=== PATIENT | female | born 2005 ===

== ENCOUNTER 2024-11-12 11:50 | Emergency (ER) | payer OTHER ==
[~2024-11-12] VITALS: Ht 165.1 cm; Wt 170.1 kg
[2024-11-12 13:09] LABS: BASOPHILS ABSOLUTE AUTO 0.04 K/mm3 (0.00-0.23); BASOPHILS PERCENT AUTO 1 % (0-2); EOSINOPHILS ABSOLUTE AUTO 0.26 K/mm3 (0.00-0.68); EOSINOPHILS PERCENT AUTO 4 % (0-6); Hemoglobin 13.7 g/dL (11.5-16.0); IMMATURE GRAN ABSOLUTE AUTO 0.02 K/mm3 (0.00-0.10); IMMATURE GRAN PERCENT AUTO 0 % (0-1); LYMPHOCYTES ABSOLUTE AUTO 2.08 K/mm3 (0.84-5.20); LYMPHOCYTES PERCENT AUTO 31 % (21-46); MONOCYTES ABSOLUTE AUTO 0.53 K/mm3 (0.16-1.47); MONOCYTES PERCENT AUTO 8 % (4-13); Mean Corpuscular HGB Conc 32.6 g/dL (31.5-36.5); Mean Corpuscular Volume 86 fL (80-100); Mean Platelet Volume 12.6 fL (9.1-12.4); NEUTROPHILS ABSOLUTE AUTO 3.85 K/mm3 (1.96-9.15); NEUTROPHILS PERCENT AUTO 57 % (41-73); Platelet Count 311 K/mm3 (150-400); RDW Coefficient Variation 13.5 % (11.7-14.2); RDW Standard Deviation 41.9 fL (35.1-46.3); White Blood Cell Count 6.78 K/mm3 (4.00-11.30)
[2024-11-12 13:25] LABS: Albumin, Blood 3.6 g/dL (3.4-5.0); Bilirubin, Total 0.4 mg/dL (0.1-1.0); Bun/Creatinine Ratio 14.9 (12.0-20.0); Creatinine, Blood 0.74 mg/dL (0.40-1.00); Globulin, Blood 3.6 g/dL (2.2-4.0); Potassium, Blood 3.7 mmol/L (3.5-5.5); Total Protein, Blood 7.2 g/dL (6.4-8.2)
[2024-11-12 13:57] LABS: Source, Urine Clean Catch
[2024-11-12 14:13] LABS: Appearance, Urine Hazy (Clear); Bilirubin, Urine Neg (Neg); Blood, Urine 2+ (Neg); Glucose Qualitative, Urine Neg (Neg); Ketones, Urine Neg (Neg); Leukocyte Esterase, Urine Neg (Neg); Nitrite, Urine Neg (Neg); Protein, Urine 1+ (Neg); Specific Gravity, Urine 1.005 (1.003-1.022); Urobilinogen, Urine NORM (Normal)
[2024-11-12] MEDS ORDERED: Ketorolac Tromethamine 15mg Vial IV ONE (14:15)
[2024-11-12] MEDS ORDERED: Lidocaine 4% 1 Patch TOP ONE (14:15)
[2024-11-12 14:29] LABS: Color, Urine Pale Yellow (P-Yellow)
[2024-11-12 14:31] LABS: Bacteria Many /hpf; Hyaline Casts 0-2 /lpf (0-2); Squamous Epithelial Cells Mod /hpf (Few); White Blood Cells, Urine 0-2 /hpf (0-5)
[2024-11-12] MEDS ORDERED: CEFP200 PO (14:48)
== END 2024-11-12 14:52 | disposition home or self-care (01) ==
LOC: ER 11:50
PROVIDERS: Student in an Organized Health Care Education/Training Program
DX: N39.0 Urinary tract infection, site not specified (principal); S33.5XXA Sprain of ligaments of lumbar spine, initial encounter; X58.XXXA Exposure to other specified factors, initial encounter
CPT/HCPCS: 76770; 80053; 81001; 81025; 85025; 87086; 96374; 99283-25; J1885